=== PATIENT | female | born 1955 | race Caucasian/White ===

== ENCOUNTER → 2020-05-16 | Day surgery (SDC) | payer MEDICARE, MEDICAID ==
[~2020-05-16] MED LIST: FENTANYL CITRATE/PF 50MCG/ML 2ML VIAL ONE; IODIXANOL 320MG/ML 200ML BOTTLE ONE; LIDOCAINE HCL 1% 20ML VIAL (Pyxis) INJ ONE; MIDAZOLAM HCL 2 MG/2 ML VIAL ONE
[2020-05-16 08:33] LABS: BASOPHILS % 1.3 % (0.0-2.0); EOSINOPHILS % 5.5 % (0.0-5.0); HEMATOCRIT. 29.4 % (36.0-48.0); HEMOGLOBIN. 9.8 g/dL (12.0-16.0); LYMPHOCYTES % 20.6 % (20.0-50.0); MEAN CORPUSCULAR HEMOGLOBIN 33.3 pg (28.0-32.0); MEAN CORPUSCULAR VOLUME 99.4 fL (81.0-99.0); MONOCYTES % 9.3 % (2.0-8.0); NEUTROPHILS % 63.3 % (40.0-76.0); PLATELET 224 x1000/uL (130-400); RED BLOOD CELL COUNT 2.96 mill/uL (4.2-5.4); RED CELL DISTRIBUTION WIDTH 17.8 % (11.6-14.6)
== END | disposition home or self-care (01) ==
LOC: CCL 06:34
PROVIDERS: ATTEND Internal Medicine
DX: I20.0 Unstable angina (principal); I12.0 Hypertensive chronic kidney disease with stage 5 chronic kidney disease or end stage renal disease; N18.6 End stage renal disease; E11.22 Type 2 diabetes mellitus with diabetic chronic kidney disease; I25.2 Old myocardial infarction; Z86.73 Personal history of transient ischemic attack (TIA), and cerebral infarction without residual deficits; Z79.899 Other long term (current) drug therapy; Z98.890 Other specified postprocedural states
CPT/HCPCS: 36415; 80048; 85025; 93458; C1760; C1769; C1887; C1893; J1644; J2250; J3010; J3490; Q9967; 99152; G0500